=== PATIENT | male | born 1970 ===

== ENCOUNTER 2018-05-15 07:57 | Inpatient (IN) | payer BC, MEDICAID ==
[2018-05-15 08:03] VITALS: BMI 33.2
--- NOTE | 2018-05-15 08:26 | ED PDOC ---
Arrival/HPI - General Historian: Patient - History of Present Illness Time/Duration: < week Symptom Onset: Gradual Symptom Course: Unchanged <Rafi Uribe - Last Filed: 05/15/18 15:19> <LeeannaPanchito L - Last Filed: 05/15/18 16:07> - General Chief Complaint: Alcohol Ingestion Time Seen by Provider: 05/15/18 08:01 - History of Present Illness Narrative History of Present Illness (Text): 05/15/18 08:22 Patient is a 47 year old male with no PMH who presents to ED for feeling shaky and feeling unsteady on his feet for the past four hours. He states that he has never felt this way before. He denies LOC or seizing and is A/o x 3 currently. He states that his last drink was at 1800 Sunday night (three days ago). He admits to drinking 3-4 large beers on Sunday and Sunday nights regularly. He denies drinking regularly during the week. He states that he has never felt a need to cut down on his alcohol intake and has never felt that he needed a drink in the morning to wake up. He denies tobacco or other drug use. He denies any past medical, surgical, or family history. He denies any fever, chills, SOB , CP, LYON, blurry vision, peripheral numbness/tingling, weakness, or dizziness. His main complaint is feeling unsteady on his feet and a trembling feeling. He denies feeling anxious, depressed, and suicidal ideation. 05/15/18 13:10 Patient provided additional history that he fell last Sunday (five days ago). He is also complaining of L leg numbness which he says has been getting worse for the past five days. He also reports that he has pain in his left leg which he describes as a tingling type pain. His brother was present at bedside and stated that he hasn't gotten out of bed for the last two days, which is why he decided to come to the ED today. (Rafi Uribe) Past Medical History - Provider Review Nursing Documentation Reviewed: Yes - Travel History Have you recently traveled outside [place] w/in the past 3 mons?: No - Cardiac Hx Cardiac Disorders: No - Pulmonary Hx Respiratory Disorders: No - Neurological Hx Neurological Disorder: No - HEENT Hx HEENT Disorder: No - Renal Hx Renal Disorder: No - Endocrine/Metabolic Hx Endocrine Disorders: No - Hematological/Oncological Hx Blood Disorders: No - Integumentary Hx Dermatological Disorder: No - Musculoskeletal/Rheumatological Hx Musculoskeletal Disorders: No - Gastrointestinal Hx Gastrointestinal Disorders: No - Genitourinary/Gynecological Hx Genitourinary Disorders: No - Psychiatric Hx Psychophysiologic Disorder: No Hx Substance Use: No <Rafi Uribe - Last Filed: 05/15/18 15:19> Family/Social History - Physician Review Nursing Documentation Reviewed: Yes Family/Social History: No Known Family HX Smoking Status: Never Smoked Hx Alcohol Use: No Hx Substance Use: No <Rafi Uribe - Last Filed: 05/15/18 15:19> Allergies/Home Meds <Rafi Uribe - Last Filed: 05/15/18 15:19> <Panchito Durán - Last Filed: 05/15/18 16:07> Allergies/Adverse Reactions: Allergies No Known Allergies Allergy (Verified 05/15/18 08:03) Home Medications: Home Meds Medication Instructions Recorded Confirmed No Known Home Med 05/15/18 05/15/18 Review of Systems - Review of Systems Constitutional: absent: Fatigue, Fevers Eyes: absent: Vision Changes, Photophobia ENT: absent: Sore Throat, Rhinorrhea Respiratory: absent: SOB, Cough Cardiovascular: absent: Chest Pain, MILLER Gastrointestinal: absent: Abdominal Pain, Nausea (admits to feeling nauseous previously but denies current nausea), Vomiting Genitourinary Male: absent: Dysuria, Frequency Musculoskeletal: absent: Arthralgias Skin: absent: Rash, Pruritis Neurological: Gait Changes. absent: Headache, Dizziness, Focal Weakness, Seizure Endocrine: absent: Diaphoresis Hemo/Lymphatic: absent: Adenopathy Psychiatric: absent: Anxiety, Depression, Suicidal Ideation, Other (no auditory or visual hallucinations) <Rafi Uribe - Last Filed: 05/15/18 15:19> Physical Exam Vital Signs Reviewed: Yes Temperature: Afebrile Blood Pressure: Hypertensive Pulse: Regular Respiratory Rate: Normal Appearance: Positive for: Unkept, Uncomfortable Pain Distress: None Mental Status: Positive for: Alert and Oriented X 3 - Systems Exam Head: Present: Atraumatic, Normocephalic Pupils: Present: PERRL Extroacular Muscles: Present: EOMI Conjunctiva: Present: Icteric Ears: Present: Normal Mouth: Present: Dry Pharnyx: Present: Normal. No: ERYTHEMA, EXUDATE Nose (External): Present: Atraumatic Neck: Present: Normal Range of Motion. No: JVD Respiratory/Chest: Present: Clear to Auscultation. No: Wheezes, Rales, Rhonchi Cardiovascular: Present: Regular Rate and Rhythm, Normal S1, S2. No: Murmurs, Rub, Gallop Abdomen: No: Tenderness, Rebound, Guarding Back: Present: Other (hematoma on right lower back) Upper Extremity: Present: Normal Inspection, Other (hematoma on left olecranon) . No: Cyanosis, Edema Lower Extremity: Present: Normal Inspection. No: Edema Neurological: Present: CN II-XII Intact, Speech Normal, Motor Func Grossly Intact, Normal Sensory Function Skin: Present: Warm, Dry Psychiatric: Present: Alert, Oriented x 3. No: Anxious, Agitated, Depressed Mood, Suicidal Ideation, Hallucinations <Rafi Uribe - Last Filed: 05/15/18 15:19> Vital Signs Temp Pulse Resp BP Pulse Ox 05/15/18 15:50 98.6 F 91 H 18 136/73 95 05/15/18 13:10 98.0 F 94 H 20 131/78 98 05/15/18 08:13 98.9 F 81 19 165/91 H 98 Medical Decision Making - Lab Interpretations I have reviewed the lab results: Yes Interpretation: Abnormal lab values (Elevated LFTs, hypomagnesemic, hypokalemic) - RAD Interpretation Manufacturing Cost Estimator: ED Physician, Radiologist <Rafi Uribe - Last Filed: 05/15/18 15:19> <Panchito Durán - Last Filed: 05/15/18 16:07> ED Course and Treatment: 05/15/18 08:29 -Patient admits to shaking/tremors but otherwise denies LYON, auditory/visual hallucinations, or any other CIWA symptoms -Will get CBC, CMP, Mg, alcohol level, urine drug screen -Will give ativan PO 2 mg to see if this improves his symptoms 05/15/18 10:27 -Convinced patient to take ativan as this will help with his shaking/tremor symptoms 05/15/18 10:46 -Patient noted to be hypomagnesemic and hypokalemic, repleted in ED -LFTs are also elevated, AST > ALT 05/15/18 12:00 -Patient is still unsteady when trying to ambulate -Will continue to monitor s/p ativan 05/15/18 13:12 -Patient was re-evaluated and gave additional history as stated in HPI -Continues to have unsteady gait -No tremors or tongue fasciculations observed -Motor strength 5/5 bilaterally 05/15/18 14:21 -Patient reassessed, motor strength still 5/5 bilaterally with unsteady gait -Discussed plan for admission with patient and his brother who agree they would rather stay for additional evaluation -Patient is icteric with elevated LFTs, will add on ammonia level 05/15/18 14:42 -Spoke with Dr. Hahn who agrees to admission (Rafi Uribe) Patient Seen With Resident: In agreement with resident note which contains more details about the patient. Patient was seen and evaluated with resident. Came up with plan and treatment together.. 47 year old male presents complaining feeling shaky and feeling unsteady on his feet. Last drink was 3 days ago. Patient reports he fell 5 days ago and is also complaining of left leg numbness which he reports is worsening. Plan: -- CT Head w/o contrast -- CT Lumbar spine w/o contrast -- Labs -- Ativan, Potassium Chloride, Mag-Ox -- Hip min 2V w/ Pelvis X-ray -- Urinalysis -- Reassess and disposition 13:12 - Patient walking status was reevaluated. He was having difficulty with gait. His left leg was more unsteady then his left leg. He did not have tremors or tongue fasciculations. He was AAOx3. His brother was now at bedside who stated that he has not been well for 2 days and also fell. Patient has right lower back ecchymosis. CT Lumbar negative for fracture. UA negative for blood. CT head negative with no evidence of stroke. Since patient has this left lower leg numbness a low dose aspirin was given for possible CVA. Platelets low but risk for CVA tx outweighted benefits. No history of gi bleed at this time. He does have elevated LFTs and is icteric. Ammonia level added. I discussed the case with Dr. Selma Avilez who agrees to aspirin and plan for admission. ( LeeannaPanchito L) - Lab Interpretations Lab Results: 05/15/18 08:50 05/15/18 08:50 Lab Results 05/15/18 12:13: Urine Opiates Screen Negative, Urine Methadone Screen Negative, Ur Barbiturates Screen Negative, Ur Phencyclidine Scrn Negative, Ur Amphetamines Screen Negative, U Benzodiazepines Scrn Negative, U Oth Cocaine Metabols Negative, U Cannabinoids Screen Negative 05/15/18 11:20: Urine Color Yellow, Urine Appearance Clear, Urine pH 7.0, Ur Specific [place] <= 1.005, Urine Protein Negative, Urine Glucose (UA) 100 H, Urine Ketones Negative, Urine Blood Negative, Urine Nitrate Negative, Urine Bilirubin Small H, Urine Urobilinogen >=8.0, Ur Leukocyte Esterase Negative 05/15/18 08:50: Alcohol, Quantitative 14 H 05/15/18 08:50: Sodium 137, Potassium 3.5 L, Chloride 100, Carbon Dioxide 26, Anion Gap 14, BUN 12, Creatinine 0.7 L, Est GFR ( Amer) > 60, Est GFR ( Non-Af Amer) > 60, Random Glucose 121 H, Calcium 8.1 L, Magnesium 1.5 L, Total Bilirubin 3.4 H, AST 650 H, ALT 128 H, Alkaline Phosphatase 99, Total Protein 7.7, Albumin 3.5, Globulin 4.2, Albumin/Globulin Ratio 0.8 L 05/15/18 08:50: WBC 5.7, RBC 3.50, Hgb 12.5 L, Hct 33.9 L, MCV 96.9, MCH 35.7 H , MCHC 36.9, RDW 15.0 H, Plt Count 50 L, MPV 11.3 H, Gran % 65.9, Lymph % (Auto ) 23.1, [place] % (Auto) 10.2 H, Eos % (Auto) 0.4 L, Baso % (Auto) 0.4, Gran # 3.75 , Lymph # (Auto) 1.3, [place] # (Auto) 0.6, Eos # (Auto) 0.0, Baso # (Auto) 0.02 - RAD Interpretation Narrative RAD Interpretations (Text): 05/15/18 14:43 Hip/pelvis xray, CT head and lumbar spine are negative for acute fracture ( Rafi Uribe) Radiology Orders: 05/15/18 13:08 HEAD W/O CONTRAST [CT] Stat HIP MIN 2V W/ PELVIS LT [RAD] Stat 05/15/18 13:09 LUMBAR SPINE W/O CONTRAST [CT] Stat - Medication Orders Current Medication Orders: Discontinued Medications Aspirin (Ecotrin) 81 mg PO STAT STA Stop: 05/15/18 14:46 Last Admin: 05/15/18 15:55 Dose: 81 mg Lorazepam (Ativan) 2 mg PO ONCE ONE PRN Reason: Protocol Stop: 05/15/18 08:35 Last Admin: 05/15/18 10:39 Dose: 2 mg Magnesium Oxide (Mag-Ox) 400 mg PO STAT STA Stop: 05/15/18 10:04 Last Admin: 05/15/18 10:39 Dose: 400 mg Potassium Chloride (K-Dur 20 Meq Er Tab) 40 meq PO STAT STA Stop: 05/15/18 10:04 Last Admin: 05/15/18 10:39 Dose: 40 meq NIHSS Scale ([place]) Time Performed: 08:01 - How Severe is the Stoke Baseline Level of Consciousness: 0=Alert LOC to Questions: 0=Both comments correct LOC to commands: 0=Obeys both correctly Best Gaze: 0=Normal Visual: 0=No visual loss Facial: 0=Normal Motor Arm - Left: 0=No drift Motor Arm - Right: 0=No drift Motor Leg - Left: 0=No drift Motor Leg - Right: 0=No drift Limb Ataxia: 0=Absent Sensory: 0=Normal Best Language: 0=No aphasia Dysarthia: 0=Normal articulation Extinction & Inattention (Neglect): 0=Normal, no object Score: 0 Risk Level: No Stroke Risk <Panchito Durán - Last Filed: 05/15/18 16:07> <Rafi Uribe - Last Filed: 05/15/18 15:19> - PA / JUNIOR STAFF ACCOUNTANT / Resident Statement PARTH has reviewed & agrees with the documentation as recorded. / has examined the patient and agrees with the treatment plan. - Scribe Statement The provider has reviewed the documentation as recorded by the Scribe <Panchito Durán - Last Filed: 05/15/18 16:07> - Scribe Statement Alaa Emily Provider Scribe Attestation: All medical record entries made by the Scribe were at my direction and personally dictated by me. I have reviewed the chart and agree that the record accurately reflects my personal performance of the history, physical exam, medical decision making, and the department course for this patient. I have also personally directed, reviewed, and agree with the discharge instructions and disposition. (Panchito Durán) Disposition/Present on Arrival - Present on Arrival Any Indicators Present on Arrival: No History of DVT/PE: No History of Uncontrolled Diabetes: No Urinary Catheter: No History of Decub. Ulcer: No History Surgical Site Infection Following: None - Disposition Have Diagnosis and Disposition been Completed?: No Disposition Time: 14:46 Patient Plan: Admission <Rafi Uribe - Last Filed: 05/15/18 15:19> - Disposition Have Diagnosis and Disposition been Completed?: Yes <Panchito Durán - Last Filed: 05/15/18 16:07> - Disposition Diagnosis: Weakness, Left leg weakness, Elevated transaminase level, Thrombocytopenia Disposition: HOSPITALIZED Patient Problems: Current Active Problems Problem Status Onset Elevated transaminase level Acute Left leg weakness Acute Thrombocytopenia Acute Weakness Acute Condition: FAIR
[2018-05-15 09:24] LABS: BASO # 0.02 K/mm3 (0.0-2.0); BASO % 0.4 % (0.0-3.0); EOS % 0.4 % (1.5-5.0); GRAN # 3.75 (1.4-6.5); GRAN % 65.9 % (50.0-68.0); HEMOGLOBIN 12.5 g/dL (14.0-18.0); LYMPH # 1.3 (1.2-3.4); LYMPH % 23.1 % (22.0-35.0); MEAN CELL VOLUME 96.9 fl (80.0-105.0); MEAN CORPUSCULAR HEMOGLOBIN 35.7 pg (25.0-35.0); MEAN CORPUSCULAR HGB CONC 36.9 g/dl (31.0-37.0); MEAN PLATELET VOLUME 11.3 fl (7.0-11.0); MONO # 0.6 (0.1-0.6); MONO % 10.2 % (1.0-6.0); RBC 3.5 10^6/uL (3.5-6.1); WHITE BLOOD COUNT 5.7 10^3/ul (4.5-11.0)
[2018-05-15 09:27] LABS: ALB/GLOB RATIO 0.8 (1.1-1.8); ALBUMIN 3.5 g/dL (3.0-4.8); ALT/SGPT 128 U/L (7-56); AST/SGOT 650 U/L (17-59); BLOOD UREA NITROGEN 12 mg/dL (7-21); CALCIUM 8.1 mg/dL (8.4-10.5); GFR NON-AFRICAN AMERICAN > 60
[2018-05-15] MEDS ORDERED: Magnesium Oxide 400 mg Tab UD PO STA (10:03)
[2018-05-15] MEDS ORDERED: Potassium Chloride 20 mEq ER Tab PO STA (10:03)
[2018-05-15 12:40] LABS: BARBITURATES, UR NEGATIVE (NEGATIVE); BENZODIAZEPINES, UR NEGATIVE (NEGATIVE); OPIATES, UR NEGATIVE (NEGATIVE); PHENCYCLIDINE, UR NEGATIVE (NEGATIVE)
--- NOTE | 2018-05-15 14:00 | CT ---
Date of service: 05/15/2018 PROCEDURE: CT HEAD WITHOUT CONTRAST. HISTORY: s/p fall COMPARISON: None available. TECHNIQUE: Axial computed tomography images were obtained through the head/brain without intravenous contrast. Radiation dose: Total exam DLP = 994 mGy-cm. This CT exam was performed using one or more of the following dose reduction techniques: Automated exposure control, adjustment of the mA and/or kV according to patient size, and/or use of iterative reconstruction technique. FINDINGS: HEMORRHAGE: No intracranial hemorrhage. BRAIN: No mass effect or edema. No atrophy or chronic microvascular ischemic changes. VENTRICLES: Unremarkable. No hydrocephalus. CALVARIUM: Unremarkable. PARANASAL SINUSES: Unremarkable as visualized. No significant inflammatory changes. MASTOID AIR CELLS: Unremarkable as visualized. No inflammatory changes. OTHER FINDINGS: None. IMPRESSION: No acute intracranial finding
--- NOTE | 2018-05-15 14:04 | CT ---
Date of service: 05/15/2018 PROCEDURE: CT Lumbar Spine without contrast HISTORY: mechanical fall r/o fx COMPARISON: None available. TECHNIQUE: Axial computed tomography images were obtained of the lumbar spine without the use of intravenous contrast. Coronal and sagittal reformatted images were created and reviewed. Radiation dose: Total exam DLP = 1338 mGy-cm. This CT exam was performed using one or more of the following dose reduction techniques: Automated exposure control, adjustment of the mA and/or kV according to patient size, and/or use of iterative reconstruction technique. FINDINGS: VERTEBRAE: Unremarkable. No fracture. Normal alignment. DISCS/SPINAL CANAL/NEURAL FORAMINA: L1-2: Unremarkable. L2-3: Unremarkable. L3-4: Mild disc bulge L4-5: Mild disc bulge L5-S1: Moderate disc bulge PARASPINAL SOFT TISSUES: Unremarkable. OTHER FINDINGS: None. IMPRESSION: No acute vertebral compression fracture
[2018-05-15 14:16] LABS: URINE BILIRUBIN SMALL (NEGATIVE); URINE BLOOD NEGATIVE (NEGATIVE); URINE GLUCOSE (UA) 100 mg/dL (NEGATIVE); URINE LEUKOCYTE ESTERASE NEGATIVE Leu/uL (NEGATIVE); URINE PROTEIN NEGATIVE mg/dL (<30 mg/dL); URINE UROBILINOGEN >=8.0 E.U./dL (<1 E.U./dL)
[2018-05-15 14:17] LABS: URINE APPEARANCE CLEAR (CLEAR); URINE COLOR YELLOW (YELLOW)
--- NOTE | 2018-05-15 14:23 | RAD ---
PROCEDURE: Left Hip and pelvis X-ray Radiographs. HISTORY: s/p fall COMPARISON: None. FINDINGS: BONES: Normal. No fracture. JOINTS: Normal. SOFT TISSUES: Normal. OTHER FINDINGS: None. IMPRESSION: No evidence of fracture
--- NOTE | 2018-05-15 15:53 | CP.PCM.HP ---
<Alexandru Avilez - Last Filed: 05/15/18 17:42> History of Present Illness - History of Present Illness History of Present Illness: Alexandru Avilez DO PGY1 - Internal medicine Biological Photographer - Hospital Progress Note 47M w/ no significant PMH brought in by EMS for 5 days of drinking and N/V. He was vomiting 4-5 times a day for the past 2 days. The vomit was light brown in color and denies any coffee ground emesis. On exam patient is complaining of some left lower extremity sided numbness/tinging and gait unsteadiness that also started 2 days ago. Pt states that he needs to grab hold of something when he walks or else he feels that he is going to fall. He states that leaning forward does not make his numbness/tinging better. He reports fevers, chills, headaches, and constipation. He denies chest pain, SOB, abdominal pain, diarrhea and dysuria. 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 In ED: BP elevated - 165/90 Thrombocytopenic Hypokalemic, Hypomag LFTs elevated AST>ALT Glucosuria Urine EtOH [address] Head negative Hip/Pelvis XR negative Lumbar Spine CT: Mild Disc Bulge L3-4 ;L4-5; Moderate disc bulge L5 - S1 Present on Admission - Present on Admission Any Indicators Present on Admission: No Review of Systems - Review of Systems Review of Systems: As per HPI Past Patient History - Past Social History Smoking Status: Never Smoked - CARDIAC Hx Cardiac Disorders: No - PULMONARY Hx Respiratory Disorders: No - NEUROLOGICAL Hx Neurological Disorder: No - HEENT Hx HEENT Problems: No - RENAL Hx Chronic Kidney Disease: No - ENDOCRINE/METABOLIC Hx Endocrine Disorders: No - HEMATOLOGICAL/ONCOLOGICAL Hx Blood Disorders: No - INTEGUMENTARY Hx Dermatological Problems: No - MUSCULOSKELETAL/RHEUMATOLOGICAL Hx Musculoskeletal Disorders: No - GASTROINTESTINAL Hx Gastrointestinal Disorders: No - GENITOURINARY/GYNECOLOGICAL Hx Genitourinary Disorders: No - PSYCHIATRIC Hx Psychophysiologic Disorder: No Hx Substance Use: No - SURGICAL HISTORY Hx Surgeries: No Meds Allergies/Adverse Reactions: Allergies Allergy/AdvReac Type Severity Reaction Status Date / Time No Known Allergies Allergy Verified 05/15/18 17:14 Physical Exam - Constitutional Appears: Well, Non-toxic, No Acute Distress - Head Exam Head Exam: ATRAUMATIC, NORMOCEPHALIC - Eye Exam Eye Exam: EOMI, PERRL, Scleral icterus - ENT Exam ENT Exam: Mucous Membranes Moist - Respiratory Exam Respiratory Exam: Clear to Auscultation Bilateral, NORMAL BREATHING PATTERN. absent: Rales, Rhonchi, Wheezes - Cardiovascular Exam Cardiovascular Exam: RRR, +S1, +S2. absent: Systolic Murmur - Extremities Exam Extremities exam: Positive for: pedal edema, pedal pulses present Additional comments: Scab L 1st toe Minimal LE Edema appreciated - Back Exam Back exam: absent: CVA tenderness (L), CVA tenderness (R) Additional comments: 8cm hematoma on R lower back - Neurological Exam Neurological exam: Alert, CN II-XII Intact Additional comments: Gross Strength 5/5 UE/LE BL - Psychiatric Exam Psychiatric exam: Normal Affect, Normal Mood - Skin Skin Exam: Dry, Intact, Normal Color, Warm Results - Vital Signs Recent Vital Signs: Last Vital Signs Temp 98.9 F 05/15/18 08:13 Pulse 81 05/15/18 08:13 Resp 19 05/15/18 08:13 BP 165/91 H 05/15/18 08:13 Pulse Ox 98 05/15/18 08:13 - Labs Result Diagrams: 05/15/18 08:50 05/15/18 08:50 Assessment & Plan - Assessment and Plan (Free Text) Assessment: 47M w/ no significant PMH, brought in by EMS w/ CC EtOH intoxication, and LLE numbness; found to have thrombocytopenia and transaminitis on ED Work up. Plan EtOh Intoxication / withdrawal -CLD -ativan 2mg q6h rubina/ 1mg q4h prn -zofran 4 mg q4h prn -Banana Bag 100/hr -Ciwa Thrombocytopenia -peripheral smear ordered -likely 2/2 EtOH abuse -monitor s/s bleeding -Hold heparin/lovenox -H/H stable Hematoma on Flank -Due to recent fall; rule out retroperitoneal hematoma -CTAP w/ IV Contrast Transaminitis -AST and ALT elevated likely 2/2 alcohol -Avoid hepatotoxic medications -Monitor LFT's in AM -Hepatitis Panel -Abdominal U/S Glucosuria -A1C pending LLE numbness Most likely sciatica vs radiculopathy 2/2 discbulge -Hip/Pelvix Xray Negative -Lumbar Spine CT - L3/4 L4/5 L5/S1 disc bulge -RPR, Folate, B12 pending Hypokalemia/ Hypomagnesmia -Repleted in ED; Reassess in AM DISPO: Inpatient obs for EtOH withdrawal/ intoxication; Will work up Thrombocytopenia, Transaminitis, and Lower Extremity Numbness Patient was seen, examined, and discussed w/ attending physician Dr. Selma Avilez DO PGY1 Internal Medicine Biological Photographer -Pager [phone] - Date & Time Date: 05/15/18 Time: 15:54 <Selma Avilez R - Last Filed: 05/17/18 14:28> Results - Vital Signs Recent Vital Signs: Last Vital Signs Temp 98.6 F 05/17/18 12:00 Pulse 117 H 05/17/18 12:14 Resp 18 05/17/18 12:00 BP 150/83 05/17/18 12:00 Pulse Ox 96 05/17/18 06:00 - Labs Result Diagrams: 05/17/18 09:50 05/17/18 05:30 Labs: Laboratory Results - last 24 hr 05/16/18 05/17/18 05/17/18 05:40 05:30 05:30 WBC 2.9 L* D RBC 2.91 L Hgb 10.5 L Hct 28.6 L MCV 98.3 MCH 36.1 H MCHC 36.7 RDW 15.6 H Plt Count 39 L* MPV 10.6 Gran % 59.8 Lymph % (Auto) 23.3 [place] % (Auto) 14.2 H Eos % (Auto) 2.4 Baso % (Auto) 0.3 Gran # 1.72 Lymph # (Auto) 0.7 L [place] # (Auto) 0.4 Eos # (Auto) 0.1 Baso # (Auto) 0.01 Sodium 138 Potassium 3.6 Chloride 103 Carbon Dioxide 28 Anion Gap 11 BUN 7 Creatinine 0.6 L Est GFR ( Amer) > 60 Est GFR (Non-Af Amer) > 60 Random Glucose 114 H Calcium 8.0 L Phosphorus 3.0 Magnesium 1.5 L Total Bilirubin 3.0 H AST 350 H D ALT 100 H Alkaline Phosphatase 88 Total Protein 6.5 Albumin 2.9 L Globulin 3.6 Albumin/Globulin Ratio 0.8 L RPR Nonreactive 05/17/18 09:50 WBC 3.9 L D RBC 2.90 L Hgb 10.5 L Hct 28.4 L MCV 97.9 MCH 36.2 H MCHC 37.0 RDW 15.7 H Plt Count 41 L* MPV 10.2 Gran % 69.1 H Lymph % (Auto) 18.5 L [place] % (Auto) 10.8 H Eos % (Auto) 1.3 L Baso % (Auto) 0.3 Gran # 2.69 Lymph # (Auto) 0.7 L [place] # (Auto) 0.4 Eos # (Auto) 0.1 Baso # (Auto) 0.01 Sodium Potassium Chloride Carbon Dioxide Anion Gap BUN Creatinine Est GFR ( Amer) Est GFR (Non-Af Amer) Random Glucose Calcium Phosphorus Magnesium Total Bilirubin AST ALT Alkaline Phosphatase Total Protein Albumin Globulin Albumin/Globulin Ratio RPR Attending/Attestation - Attestation I have personally seen and examined this patient.: Yes I have fully participated in the care of the patient.: Yes I have reviewed all pertinent clinical information: Yes Notes (Text): Patient seen and examined by me at 5:00PM with resident 05/15/18. Case including HPI, physical exam, and assessment and plan discussed with resident. Agree with above with following additions/corrections. Patient is a 47 year old male with past medical history significant for alcohol abuse that presents to the Emergency room with nausea, vomiting, and left leg numbness. Patient states that he has been having these symptoms since Sunday, . He states that he had food poisoning. he states he "i only drink 2-3 large cans of beers on weekends." He states last drink was 05/12/18. He states that left leg numbness started at same time. States the numbness is from his buttock down to his foot. He states that he has had difficulty ambulating secondary to this. He is unsure if he feel. He denies any current nausea or vomiting. No abdominal pain. No headaches or dizziness. No fevers or chills. No chest pain or shortness of breath. No dysuria. 12 point review of systems reviewed by me. Please see HPI. All other systems are negative. Physical exam: General: Awake and alert sitting up in bed in no acute distress HEENT: Normocephalic atraumatic. Pupils equal reactive. Extraocular muscles intact. Positive scleral icterus. Oropharynx is pink and moist. No pharyngeal erythema or exudate appreciated. Neck is supple. Hearing grossly intact. Ears and nose externally unremarkable Cardiovascular: Normal rhythm. Normal S1, S2. No murmurs, rubs, or gallops appreciated Pulmonary: Normal respiratory effort. No rhonchi, rales or wheezing appreciated. Gastrointestinal: Soft, nondistended. Nontender. Positive bowel sounds all 4 quadrants, no guarding. Musculoskeletal: Decreased range of motion left lower extremity, no calf tenderness, no edema appreciated. Central nervous system: AAOx3. CN2-12 grossly intact. 5/5 muscle strength all extremities. Dermatologic: Skin warm and dry, positive hematoma noted at right flank area Assessment and plan: Patient is a 47 year old male with past medical history significant for alochol abuse that presents to the Emergency room with nausea, vomiting, and left leg numbness. 1. ETOH abuse/intoxication/withdrawal. Placed on CIWA protocol. Placed on Ativan. Placed on thiamine, folic acid, and multivitamin. Patient counseled at length on cessation. Seizure precautions. Fall precautions. 2. Left leg numbness. Symptoms likely related to sciatica. Head CT per radiologist shows no acute intracranial finding. Left hip/pelvic xray per radiologist showed no fracture. Lumbar spine CT per radiologist shows no acute vertebral compression fracture. Ordered left lower extremity venous doppler. PT eval and treat. 3. Thrombocytopenia. Likely secondary to ETOh abuse. Pending peripheral smear. No current signs of acute bleeding. Continue to monitor 4. Elevated LFTS. Likely secondary to ETOH abuse. Follow up RUQ ultrasound and CT abd/pelvis. Follow up hepatitis panel. Continue to monitor 5. Right flank hematoma. Follow up CT abd/pelvis. 6. Hypokalemia/hypomagnesemia. Repleted in ED. Follow up repeat labs in AM. Case was discussed in detail with the patient regarding current diagnosis and treatment plan.
[2018-05-15] MEDS: Folic Acid 1 MG, Thiamine 100 MG, Multivitamin (MVI) 10 ML in Dextrose 5% In Water 1,00... IV SCH (18:54)
[2018-05-15] MEDS ORDERED: Pneumococcal 23-Valent Vaccine IM ONE (21:44)
--- NOTE | 2018-05-15 23:18 | CARD ---
APPROVED REPORT Date of service: 05/15/2018 EKG Measurement Heart [id number] [id number] <Conclusion> Sinus rhythm with short MA Prolonged QT Abnormal ECG
[2018-05-16] MEDS: Folic Acid 1 MG, Thiamine 100 MG, Multivitamin (MVI) 10 ML in Dextrose 5% In Water 1,00... IV SCH ×3 (04:08→22:31)
[2018-05-16 06:32] LABS: BASO # 0.01 K/mm3 (0.0-2.0); BASO % 0.2 % (0.0-3.0); EOS # 0.1 (0.0-0.7); EOS % 1.3 % (1.5-5.0); GRAN # 2.63 (1.4-6.5); GRAN % 57.7 % (50.0-68.0); HEMOGLOBIN 10.6 g/dL (14.0-18.0); LYMPH # 1.3 (1.2-3.4); LYMPH % 27.9 % (22.0-35.0); MEAN CORPUSCULAR HEMOGLOBIN 35.3 pg (25.0-35.0); MEAN CORPUSCULAR HGB CONC 36.1 g/dl (31.0-37.0); MEAN PLATELET VOLUME 11.1 fl (7.0-11.0); MONO # 0.6 (0.1-0.6); MONO % 12.9 % (1.0-6.0); RED CELL DISTRIBUTION WIDTH 15.3 % (11.5-14.5); WHITE BLOOD COUNT 4.6 10^3/ul (4.5-11.0)
[2018-05-16 06:43] LABS: PLATELET COUNT 42 10^3/uL (120.0-450.0)
[2018-05-16 06:56] LABS: LDL CHOLESTEROL 79 mg/dL (0-129)
[2018-05-16 07:03] LABS: ALB/GLOB RATIO 0.8 (1.1-1.8); ALBUMIN 2.9 g/dL (3.0-4.8); ALT/SGPT 106 U/L (7-56); AST/SGOT 481 U/L (17-59); BLOOD UREA NITROGEN 8 mg/dL (7-21); CALCIUM 7.6 mg/dL (8.4-10.5); GFR NON-AFRICAN AMERICAN > 60; HDL CHOLESTEROL 26 mg/dL (29-60)
[2018-05-16] MEDS ORDERED: Potassium Chloride 20 mEq ER Tab PO STA (07:49)
[2018-05-16] MEDS ORDERED: Magnesium Sulfate 2 GM in Sodium Chloride 0.9% 100 ML IVPB ONE (07:51)
--- NOTE | 2018-05-16 08:13 | US ---
HISTORY: Leg pain and swelling. Evaluate for DVT PHYSICIAN(S): Kg Light MD. TECHNIQUE: Duplex sonography and color-flow Doppler with graded compression were used to evaluate the deep venous systems of both lower extremities. FINDINGS: The visualized deep venous systems of both lower extremities are sonographically normal and compressible. Normal wave forms and augmentation are seen. There is no sonographic evidence for deep venous thrombosis in the visualized segments of both lower extremities. IMPRESSION: No sonographic evidence for deep venous thrombosis in the visualized segments of both lower extremities.
[2018-05-16] MEDS ORDERED: Magnesium 2 gm/50 ml NS 2 GM/50 ML BAG IVPB ONE (08:15)
--- NOTE | 2018-05-16 09:10 | CT ---
Date of service: 05/15/2018 PROCEDURE: CT Abdomen and Pelvis with contrast HISTORY: R/o retroperitoneal hematoma COMPARISON: None. TECHNIQUE: Following intravenous contrast administration, a CT examination of the abdomen and pelvis performed from the domes of the diaphragms to the symphysis pubis with reformatted datasets provided not only axial but also sagittal and coronal series. Contrast dose: Omnipaque 350, 146 cc. Radiation dose: Total exam DLP = 1234.95 mGy-cm. This CT exam was performed using one or more of the following dose reduction techniques: Automated exposure control, adjustment of the mA and/or kV according to patient size, and/or use of iterative reconstruction technique. FINDINGS: LOWER THORAX: Unremarkable. LIVER: A low-attenuation liver with a nodular surface is appreciated with hepatic cirrhosis and diffuse fatty infiltration as well. No focal mass is identified. Hepatofugal blood flows apparent given multifocal varices identified most prominently at the right lower quadrant extending to the superior mesenteric vein with lesser varices identified at the distal esophagus, gastrohepatic ligament and also at the splenorenal distribution. GALLBLADDER AND BILE DUCTS: No biliary tree dilatation is appreciated however the gallbladder is distended with a thin smooth wall to the 13.4 x 4.5 cm. No radiodense cholelithiasis identified or pericholecystic fluid collection. Clinically correlate nevertheless. PANCREAS: Unremarkable. No gross lesion or ductal dilatation. SPLEEN: Unremarkable. ADRENALS: Unremarkable. No mass. KIDNEYS AND URETERS: Unremarkable. No hydronephrosis. No solid mass. No retroperitoneal fluid collection identified. VASCULATURE: Unremarkable. No aortic aneurysm. BOWEL: Unremarkable. No obstruction. No gross mural thickening. APPENDIX: Normal appendix. PERITONEUM: Unremarkable. No free fluid. No free air. LYMPH NODES: Unremarkable. No enlarged lymph nodes. BLADDER: Unremarkable. REPRODUCTIVE: Unremarkable. BONES: No acute fracture. Questionable small infarct right femoral head. OTHER FINDINGS: Moderate reactive changes are identified in the left thigh/ hip subcutaneous fat suggests of cellulitis including dermal thickening. Clear posttraumatic or infectious/ inflammatory process. No emphysematous soft tissue change are identified or retained radiodense foreign body. Minimal similar changes in the left flank will abdominal wall extending posteriorly, also without fluid collection. IMPRESSION: 1. No retroperitoneal fluid collection identified. 2. Instead, moderate reactive changes are identified in the left thigh access hip subcutaneous soft tissues greater than left flank abdominal wall subcutaneous fat and dermis suggestive of posttraumatic changes no infectious or inflammatory causes are not excluded. No emphysema soft tissue change or retained radiodense foreign body identified. Clinically correlate further. No acute fracture. 3. Fatty cirrhotic liver with hepatofugal blood flow. Multifocal varices are identified in the abdomen as discussed above. 4. Marked gallbladder distention without radiodense cholelithiasis, mural thickening or pericholecystic fluid collection evident. Clinically correlate nevertheless.
--- NOTE | 2018-05-16 10:08 | US ---
Date of service: 05/15/2018 HISTORY: Liver Enzymes COMPARISON: None. TECHNIQUE: Sonographic evaluation of the right upper quadrant of the abdomen. FINDINGS: LIVER: Measures 16.1 cm in length. Borderline hepatomegaly. Increased echogenicity of the liver parenchyma suggest mild hepatic steatosis. No mass. No intrahepatic bile duct dilatation. GALLBLADDER: Gallbladder is distended with mild mural thickening questioned. Trace pericholecystic fluid is seen. Clinically correlate for possible cholecystitis though this is a nonspecific finding. COMMON BILE DUCT: Measures 4.6 mm. No stones. No dilatation. PANCREAS: Secured by overlying bowel gas RIGHT KIDNEY: Measures 12.8 cm in length. Normal echogenicity. No calculus, mass, or hydronephrosis. AORTA: No aneurysmal dilatation. IVC: Unremarkable. OTHER FINDINGS: None . IMPRESSION: 1. Questionable mural thickening of the gallbladder, distention and pericholecystic fluid are identified which may indicate cholecystitis though ultimately this is a nonspecific pattern. Clinically correlate further. No biliary tree dilatation or cholelithiasis identified. 2. Pancreas poorly evaluated due to overlying bowel gas. Concordant preliminary report from [facility], 05/15/2018.
[2018-05-16 11:58] LABS: HEPATITIS B SURFACE AG Negative (NEGATIVE)
[2018-05-16 12:03] LABS: HEPATITIS A IGM NEGATIVE (NEGATIVE); HEPATITIS B CORE AB NEGATIVE (NEGATIVE)
[2018-05-16 12:15] LABS: HEPATITIS C ANTIBODY NEGATIVE (NEGATIVE)
[2018-05-16 12:35] LABS: FOLATE > 20.0 ng/mL
--- NOTE | 2018-05-16 14:06 | CP.PCM.PN ---
<Alexandru Avilez - Last Filed: 05/16/18 14:00> Subjective - Date & Time of Evaluation Date of Evaluation: 05/16/18 Time of Evaluation: 14:00 - Subjective Subjective: Alexandru Avilez DO PGY1 - Internal Medicine Bulk Sugar Handler - Hospital Progress Note Pt. seen and examined at bedside this AM Reporting no new complaints at evaluation. Still complains of L leg numbness/ tingling; Denies seizure like symtpoms, reports no tremors at this time. He denies fevers, chills, sob, LYON, dizziness, Abd pain, N/V/D/C Remainder of 12 system ROS is otherwise negative. Objective - Vital Signs/Intake and Output Vital Signs (last 24 hours): Temp Pulse Resp BP Pulse Ox 98.8 F 102 H 19 136/81 97 05/16/18 12:00 05/16/18 12:00 05/16/18 12:00 05/16/18 12:00 05/16/18 06:04 Intake and Output: 05/16/18 05/16/18 06:59 18:59 Intake Total 1620 Output Total 640 Balance 980 - Medications Medications: Current Medications Hydralazine HCl (Apresoline) 10 mg IVP Q6 PRN PRN Reason: Systolic Blood Pressure Folic Acid 1 mg/ Thiamine HCl 100 mg/ Multivitamins/Vitamin C 10 ml/ Dextrose 1 ,011.2 mls @ 100 mls/hr IV .Q10H7M [facility] Last Admin: 05/16/18 12:15 Dose: Not Given Lorazepam (Ativan) 2 mg IVP Q6H [facility] PRN Reason: Protocol Last Admin: 05/16/18 10:10 Dose: 2 mg Lorazepam (Ativan) 1 mg IVP Q4H PRN; Protocol PRN Reason: Symptoms of alcohol withdrawl Ondansetron HCl (Zofran Inj) 4 mg IVP Q8H PRN PRN Reason: Nausea/Vomiting - Labs Labs: 05/16/18 05:40 05/16/18 05:40 Physical Exam - Constitutional Appears: Well, Non-toxic, No Acute Distress - Head Exam Head Exam: ATRAUMATIC, NORMOCEPHALIC - Eye Exam Eye Exam: EOMI, PERRL, Scleral icterus - ENT Exam ENT Exam: Mucous Membranes Moist - Respiratory Exam Respiratory Exam: Clear to Auscultation Bilateral, NORMAL BREATHING PATTERN. absent: Rales, Rhonchi, Wheezes - Cardiovascular Exam Cardiovascular Exam: RRR, +S1, +S2. absent: Systolic Murmur - Extremities Exam Extremities exam: Positive for: pedal edema, pedal pulses present Additional comments: Scab L 1st toe Minimal LE Edema appreciated - Back Exam Back exam: absent: CVA tenderness (L), CVA tenderness (R) Additional comments: 8cm hematoma on R lower back; appears to be shrinking; borders are marked w/ marker - Neurological Exam Neurological exam: Alert, CN II-XII Intact Additional comments: Gross Strength 5/5 UE/LE BL - Psychiatric Exam Psychiatric exam: Normal Affect, Normal Mood - Skin Skin Exam: Dry, Intact, Normal Color, Warm Assessment and Plan - Assessment and Plan (Free Text) Assessment: 47M w/ no significant PMH, brought in by EMS w/ CC EtOH intoxication, and LLE numbness; found to have thrombocytopenia and transaminitis on ED Work up. Found to have Abdominal varicies on CTAP. Plan EtOh Intoxication / withdrawal -CLD -ativan 2mg q6h rubina/ 1mg q4h prn -zofran 4 mg q8h prn -Banana Bag 100/hr -Ciwa scores have been 1-2 since admission Thrombocytopenia -peripheral smear ordered -mild decrease from day prior; most likely dilutional effect -likely 2/2 EtOH abuse -monitor s/s bleeding -Hold heparin/lovenox -H/H stable Multifocal Varicies -CTAP Findings: Fatty cirrhotic liver with hepatofugal blood flow. Multifocal varices are identified in the abdomen. Marked gallbladder distention without radiodense cholelithiasis, mural thickening or pericholecystic fluid collection evident. -No hematochezia or Melena -GI Consulted, Appreciate Reccs Hematoma on Flank - Improving -Due to recent fall; rule out retroperitoneal hematoma -CTAP w/ IV Contrast - No retroperitoneal hematoma Transaminitis -Abdominal U/S - revealed questionable mural thickening of the gallbladder, distention and pericholecystic fluid are identified which may indicate cholecystitis though ultimately this is a nonspecific pattern. No biliary tree dilatation or cholelithiasis identified. Pancreas poorly evaluated due to overlying bowel gas -AST and ALT elevated likely 2/2 alcohol -Avoid hepatotoxic medications -Monitor LFT's in AM -Hepatitis Panel Glucosuria -A1C 4.5 LLE numbness Most likely sciatica vs radiculopathy 2/2 discbulge -Hip/Pelvix Xray Negative -Lumbar Spine CT - L3/4 L4/5 L5/S1 disc bulge -RPR pending -B12 normal; Folate Normal Hypokalemia/ Hypomagnesmia -Still persisting; will replete and reassess DISPO: Admitted to inpatient for EtOH withdrawal/ intoxication; Will work up Thrombocytopenia, Transaminitis, and Lower Extremity Numbness Patient was seen, examined, and discussed w/ attending physician Dr. Frandy Avilez DO PGY1 Internal Medicine Bulk Sugar Handler -Pager [phone] <Kamron Wise - Last Filed: 05/16/18 15:17> Objective - Vital Signs/Intake and Output Vital Signs (last 24 hours): Temp Pulse Resp BP Pulse Ox 98.8 F 102 H 19 136/81 97 05/16/18 12:00 05/16/18 12:00 05/16/18 12:00 05/16/18 12:00 05/16/18 06:04 Intake and Output: 05/16/18 05/16/18 06:59 18:59 Intake Total 1620 Output Total 640 Balance 980 - Medications Medications: Current Medications Hydralazine HCl (Apresoline) 10 mg IVP Q6 PRN PRN Reason: Systolic Blood Pressure Folic Acid 1 mg/ Thiamine HCl 100 mg/ Multivitamins/Vitamin C 10 ml/ Dextrose 1 ,011.2 mls @ 100 mls/hr IV .Q10H7M [facility] Last Admin: 05/16/18 12:15 Dose: Not Given Lorazepam (Ativan) 2 mg IVP Q6H RUBINA PRN Reason: Protocol Last Admin: 05/16/18 10:10 Dose: 2 mg Lorazepam (Ativan) 1 mg IVP Q4H PRN; Protocol PRN Reason: Symptoms of alcohol withdrawl Ondansetron HCl (Zofran Inj) 4 mg IVP Q8H PRN PRN Reason: Nausea/Vomiting - Labs Labs: 05/16/18 05:40 05/16/18 05:40 Attending/Attestation - Attestation I have personally seen and examined this patient.: Yes I have fully participated in the care of the patient.: Yes I have reviewed all pertinent clinical information, including history, physical exam and plan: Yes Notes (Text): 05/16/18 15:11 47 year old male with past medical history of alcohol abuse who presented with alcohol intoxication and left leg numbness. He is on ativan rubina/prn for alcohol withdrawal symptoms. He is on banana bag. He was counselled on alcohol abstinence. Thrombocytopenia and elevated LFTs likely secondary to chronic ETOH abuse. Will continue to monitor closely. CT abd/pelvis showed fatty cirrhotic liver and multifocal varices in the abdomen. GI consult is requested. He has small bruising / hematoma on his low back / flank. CT abd/pelvis was negative for retroperitoneal hematoma. CT head, CT lumbar spine and Xray of hip / pelvis reviewed as above. Will replete and repeat lytes. PT evaluation was appreciated; recommending SAR. Kamron Wise MD Hospitalist.
[2018-05-17 00:49] VITALS: RESP 18
[2018-05-17 06:43] LABS: BASO # 0.01 K/mm3 (0.0-2.0); EOS # 0.1 (0.0-0.7); MEAN CELL VOLUME 98.3 fl (80.0-105.0); MONO # 0.4 (0.1-0.6)
[2018-05-17 06:50] VITALS: O2SAT 96
[2018-05-17 07:02] LABS: BASO % 0.3 % (0.0-3.0); EOS % 2.4 % (1.5-5.0); GRAN # 1.72 (1.4-6.5); GRAN % 59.8 % (50.0-68.0); HEMOGLOBIN 10.5 g/dL (14.0-18.0); LYMPH # 0.7 (1.2-3.4); LYMPH % 23.3 % (22.0-35.0); MEAN CORPUSCULAR HEMOGLOBIN 36.1 pg (25.0-35.0); MEAN CORPUSCULAR HGB CONC 36.7 g/dl (31.0-37.0); MEAN PLATELET VOLUME 10.6 fl (7.0-11.0); MONO % 14.2 % (1.0-6.0); RBC 2.91 10^6/uL (3.5-6.1); RED CELL DISTRIBUTION WIDTH 15.6 % (11.5-14.5)
[2018-05-17 07:25] LABS: ALB/GLOB RATIO 0.8 (1.1-1.8); ALBUMIN 2.9 g/dL (3.0-4.8); ALT/SGPT 100 U/L (7-56); AST/SGOT 350 U/L (17-59); BLOOD UREA NITROGEN 7 mg/dL (7-21); GFR NON-AFRICAN AMERICAN > 60
[2018-05-17 07:26] LABS: WHITE BLOOD COUNT 2.9 10^3/ul (4.5-11.0)
[2018-05-17 07:27] LABS: PLATELET COUNT 39 10^3/uL (120.0-450.0)
[2018-05-17] MEDS ORDERED: Magnesium Sulfate 2 GM in Sodium Chloride 0.9% 100 ML IVPB ONE (08:37)
[2018-05-17] MEDS ORDERED: Magnesium 2 gm/50 ml NS 2 GM/50 ML BAG IVPB ONE (08:45)
[2018-05-17] MEDS: Folic Acid 1 MG, Thiamine 100 MG, Multivitamin (MVI) 10 ML in Dextrose 5% In Water 1,00... IV SCH (09:00)
[2018-05-17 10:08] LABS: BASO # 0.01 K/mm3 (0.0-2.0); BASO % 0.3 % (0.0-3.0); EOS # 0.1 (0.0-0.7); EOS % 1.3 % (1.5-5.0); GRAN # 2.69 (1.4-6.5); GRAN % 69.1 % (50.0-68.0); HEMOGLOBIN 10.5 g/dL (14.0-18.0); LYMPH # 0.7 (1.2-3.4); LYMPH % 18.5 % (22.0-35.0); MEAN CELL VOLUME 97.9 fl (80.0-105.0); MEAN CORPUSCULAR HEMOGLOBIN 36.2 pg (25.0-35.0); MEAN PLATELET VOLUME 10.2 fl (7.0-11.0); MONO # 0.4 (0.1-0.6); MONO % 10.8 % (1.0-6.0); RED CELL DISTRIBUTION WIDTH 15.7 % (11.5-14.5); WHITE BLOOD COUNT 3.9 10^3/ul (4.5-11.0)
[2018-05-17 10:17] LABS: PLATELET COUNT 41 10^3/uL (120.0-450.0)
--- NOTE | 2018-05-17 11:08 | CON ---
Copied To: Froylan Martínez MD Attending MD: Froylan Martínez MD DATE: 05/17/2018 CONSULTATION IN GASTROENTEROLOGY REQUESTING PHYSICIAN: Dr. Wise. REASON FOR CONSULT: I have been asked to see this 47-year-old male with a history of alcoholism, cirrhosis of the liver, who is admitted to the hospital with 3 days of nausea and vomiting. He denies any hematemesis, melena or rectal bleeding. He denies any abdominal pain. He admits to frequent falls at home. He also complains of some paresthesias and numbness in his left thigh. The patient's gait has been unsteady. CT scan of the abdomen and pelvis performed in the emergency room revealed a cirrhotic liver. No evidence of bowel obstruction, fatty infiltration of the liver with varices in the distal esophagus gastrohepatic ligament and splenorenal area. There are also mesenteric varices in the right lower quadrant. There is mild gallbladder distention without any gallstones or gallbladder wall thickening or pericholecystic fluid. There was subcutaneous infiltration with edema in the left thigh and hip. No abscess or emphysematous changes are seen in the left leg. The patient has not had any further vomiting since his hospitalization. PAST MEDICAL HISTORY: Notable for alcoholism, frequent falls at home, cirrhosis of the liver. PAST SURGICAL HISTORY: Notable for right knee surgery arthroscopically and left wrist fracture. FAMILY HISTORY: Unremarkable. SOCIAL HISTORY: The patient consumes alcohol on a regular basis on weekends with binge drinking. He denies illicit drug use. REVIEW OF SYSTEMS: Fourteen-point review of systems is notable for nausea, vomiting and frequent falls, gait disturbance and left leg paresthesia. PHYSICAL EXAMINATION: GENERAL: Well-developed male, lying in bed, in no acute distress. VITAL SIGNS: Reveal temperature of 98.2, blood pressure 128/73, heart rate of 84. HEENT: Reveals sclerae to be white. Conjunctivae pink. NECK: Supple. CHEST: Reveals lungs to be clear. HEART: Reveals regular rate and rhythm. ABDOMEN: Soft, nontender. No mass. EXTREMITIES: Show no edema. SPECIFICALLY: There is no edema or cellulitis around the left thigh or left buttock. LABORATORY DATA: Reveals white blood cell count 2.9, hemoglobin 10.5, platelet count of 39,000. Chemistries reveal AST of 350, ALT of 100, total bilirubin of 3. Serum alcohol level on admission to the hospital was 14. Hepatitis serology is negative. IMPRESSION: A 47-year-old male with alcoholism with nausea and vomiting for several days. CT scan of the abdomen and pelvis does show cirrhosis of the liver with multiple varices in the abdomen. There is no evidence of overt GI bleeding. He has had frequent falls at home with unsteady gait, most likely secondary to alcoholism. I suspect that his nausea and vomiting are secondary to either recent alcohol use or alcohol withdrawal. He is not tremulous. RECOMMENDATIONS: 1. Advance diet as tolerated. 2. We will recommend starting the patient on nadolol 20 mg daily for primary prevention of variceal bleeding. 3. Follow liver enzymes. 4. PPI, pantoprazole 40 mg once a day. Froylan Martínez MD
[2018-05-17 19:13] VITALS: BP 128/66; PULSE 78; TEMP 99
--- NOTE | 2018-05-17 22:21 | CP.PCM.DIS ---
<Alexandru Avilez - Last Filed: 05/17/18 23:09> Provider - Provider Date of Admission: 05/15/18 14:46 Attending physician: Kamron Wise MD Primary care physician: Froylan Farley MD Consults: Dr. Martínez - MICHAEL Time Spent in preparation of Discharge (in minutes): 40 Diagnosis - Discharge Diagnosis (1) Alcohol withdrawal Status: Acute Priority: High (2) Intra-abdominal varices Status: Acute Priority: Medium (3) Alcoholic cirrhosis of liver without ascites Status: Acute Priority: Medium (4) Elevated transaminase level Status: Acute Priority: Medium (5) Left leg weakness Status: Chronic Priority: Medium (6) Thrombocytopenia Status: Acute Priority: Medium Hospital Course - Lab Results Lab Results: Most Recent Lab Values WBC 3.9 10^3/ul (4.5-11.0) L D 05/17/18 09:50 RBC 2.90 10^6/uL (3.5-6.1) L 05/17/18 09:50 Hgb 10.5 g/dL (14.0-18.0) L 05/17/18 09:50 Hct 28.4 % (42.0-52.0) L 05/17/18 09:50 MCV 97.9 fl (80.0-105.0) 05/17/18 09:50 MCH 36.2 pg (25.0-35.0) H 05/17/18 09:50 MCHC 37.0 g/dl (31.0-37.0) 05/17/18 09:50 RDW 15.7 % (11.5-14.5) H 05/17/18 09:50 Plt Count 41 10^3/uL (120.0-450.0) L* 05/17/18 09:50 MPV 10.2 fl (7.0-11.0) 05/17/18 09:50 Gran % 69.1 % (50.0-68.0) H 05/17/18 09:50 Lymph % (Auto) 18.5 % (22.0-35.0) L 05/17/18 09:50 [place] % (Auto) 10.8 % (1.0-6.0) H 05/17/18 09:50 Eos % (Auto) 1.3 % (1.5-5.0) L 05/17/18 09:50 Baso % (Auto) 0.3 % (0.0-3.0) 05/17/18 09:50 Gran # 2.69 (1.4-6.5) 05/17/18 09:50 Lymph # (Auto) 0.7 (1.2-3.4) L 05/17/18 09:50 [place] # (Auto) 0.4 (0.1-0.6) 05/17/18 09:50 Eos # (Auto) 0.1 (0.0-0.7) 05/17/18 09:50 Baso # (Auto) 0.01 K/mm3 (0.0-2.0) 05/17/18 09:50 Differential Comment See pathology report 05/16/18 05:40 Sodium 138 mmol/L (132-148) 05/17/18 05:30 Potassium 3.6 mmol/L (3.6-5.0) 05/17/18 05:30 Chloride 103 mmol/L (98-107) 05/17/18 05:30 Carbon Dioxide 28 mmol/L (21-33) 05/17/18 05:30 Anion Gap 11 (10-20) 05/17/18 05:30 BUN 7 mg/dL (7-21) 05/17/18 05:30 Creatinine 0.6 mg/dl (0.8-1.5) L 05/17/18 05:30 Est GFR ( Amer) > 60 05/17/18 05:30 Est GFR (Non-Af Amer) > 60 05/17/18 05:30 Random Glucose 114 mg/dL (70-110) H 05/17/18 05:30 Hemoglobin A1c 4.5 % (4.2-6.5) 05/16/18 05:40 Calcium 8.0 mg/dL (8.4-10.5) L 05/17/18 05:30 Phosphorus 3.0 mg/dL (2.5-4.5) 05/17/18 05:30 Magnesium 1.5 mg/dL (1.7-2.2) L 05/17/18 05:30 Total Bilirubin 3.0 mg/dL (0.2-1.3) H 05/17/18 05:30 AST 350 U/L (17-59) H D 05/17/18 05:30 ALT 100 U/L (7-56) H 05/17/18 05:30 Alkaline Phosphatase 88 U/L (38-126) 05/17/18 05:30 Ammonia 60 umol/L (9-33) H 05/16/18 05:20 Total Protein 6.5 g/dL (5.8-8.3) 05/17/18 05:30 Albumin 2.9 g/dL (3.0-4.8) L 05/17/18 05:30 Globulin 3.6 gm/dL 05/17/18 05:30 Albumin/Globulin Ratio 0.8 (1.1-1.8) L 05/17/18 05:30 Triglycerides 70 mg/dL (35-160) 05/16/18 05:40 Cholesterol 131 mg/dL (130-200) 05/16/18 05:40 LDL Cholesterol Direct 79 mg/dL (0-129) 05/16/18 05:40 HDL Cholesterol 26 mg/dL (29-60) L 05/16/18 05:40 Vitamin B12 846 pg/mL (239-931) 05/16/18 05:40 Folate > 20.0 ng/mL 05/16/18 05:40 TSH 3rd Generation 3.26 mIU/mL (0.46-4.68) 05/16/18 05:40 Urine Color Yellow (YELLOW) 05/15/18 11:20 Urine Appearance Clear (CLEAR) 05/15/18 11:20 Urine pH 7.0 (4.7-8.0) 05/15/18 11:20 Ur Specific [place] <= 1.005 (1.005-1.035) 05/15/18 11:20 Urine Protein Negative mg/dL (<30 mg/dL) 05/15/18 11:20 Urine Glucose (UA) 100 mg/dL (NEGATIVE) H 05/15/18 11:20 Urine Ketones Negative mg/dL (NEGATIVE) 05/15/18 11:20 Urine Blood Negative (NEGATIVE) 05/15/18 11:20 Urine Nitrate Negative (NEGATIVE) 05/15/18 11:20 Urine Bilirubin Small (NEGATIVE) H 05/15/18 11:20 Urine Urobilinogen >=8.0 E.U./dL (<1 E.U./dL) 05/15/18 11:20 Ur Leukocyte Esterase Negative Ashley/uL (NEGATIVE) 05/15/18 11:20 Urine Opiates Screen Negative (NEGATIVE) 05/15/18 12:13 Urine Methadone Screen Negative (NEGATIVE) 05/15/18 12:13 Acetaminophen < 10.0 ug/ml (10.0-20.0) L 05/16/18 05:40 Ur Barbiturates Screen Negative (NEGATIVE) 05/15/18 12:13 Ur Phencyclidine Scrn Negative (NEGATIVE) 05/15/18 12:13 Ur Amphetamines Screen Negative (NEGATIVE) 05/15/18 12:13 U Benzodiazepines Scrn Negative (NEGATIVE) 05/15/18 12:13 U Oth Cocaine Metabols Negative (NEGATIVE) 05/15/18 12:13 U Cannabinoids Screen Negative (NEGATIVE) 05/15/18 12:13 Alcohol, Quantitative 14 mg/dL (0-10) H 05/15/18 08:50 RPR Nonreactive (NONREACTIVE) 05/16/18 05:40 Hepatitis A IgM Ab Negative (NEGATIVE) 05/16/18 05:40 Hep Bs Antigen Negative (NEGATIVE) 05/16/18 05:40 Hep B Core IgM Ab Negative (NEGATIVE) 05/16/18 05:40 Hepatitis C Antibody Negative (NEGATIVE) 05/16/18 05:40 - Hospital Course Hospital Course: Alexandru Avilez DO PGY1 - Internal Medicine Glaze Sprayer - Hospital Discharge Summary 47M w/ a PMH of EtOH abuse brought in by EMS on 05/15 after family stated he had been drinking for 5 days prior to admission began experiencing EtOH withdrawal symptoms as well as N/V x6 hours [employer]. On initial exam patient denied EtOH abuse however reported he was feeling tremulous and had increased complaints of gait unsteadiness, and LLE numbness/ tingling and pain which started in buttocks and radiated down to his foot. He reported LLE pain is chronic for him and it had worsened prior to admission. In the ED, patient was found to have hypokalemia, hypomagnesmia, thrombocytopenia, EtOH level of 14, and Transaminitis. He was also found to have a R flank hematoma 2/2 falls. Patient was started on banana bag, ativan, and CIWA protocol. CIWA scores remained stable and he was subsequently tapered off of ativan. LLE deficits were thought to be most likely 2/2 sciatica given distribution of symptoms and imaging below. PT Eval recommended patient for LONNY, and Gabapentin 100mg BID was started. Transaminitis improved through hospital course and found to be due to fatty cirrhotic liver 2/2 alcohol. Other etiologies such as acetminophen toxicity, and hepatitis were ruled out with serologic testing. Although imaging revealed cholecystis, patient had negative byrd's sign, no leukocytosis, and tolerated advancing diet well. CTAP did show multifocal varicies, GI consulted, and patient was started on Nadolol. He was instructed to follow up by GI for further evaluation as outpt. Patient's lab work through hospital course showed thrombocytopenia, and pancytopenia etiology most likely concluded to be 2/2 EtOH induced myelosupression. Relevant Imaging: -Head CT: no acute intracranial findings -Hip/Pelvis Xray: no evidence of fracture -Lumbar Spine CT: no acute vertebral compression fracture however findings of disc herniations between L3/4 L4/5 and L5/S1 were evident -EKG: HR 91, sinus rhythm with short ME, prolonged QT -GB U/S: questionable mural thickening of GB, distention and pericholecystic fluid are identified-may indicate cholecystitis. No biliary tree dilation or cholelithiasis -Abd/pelvis CT: moderate reactive changes are identified in left thigh...suggestive of posttraumatic changes. Fatty cirrhotic liver, multifocal varices are identified in abdomen, marked GB distention without radiodense cholelithiasis, mural thhickening or pericholecystic fluid collection -Extremity U/S: no sonographic evidence for DVT Patient was seen morning prior to discharge; No acute events overnight, nursing voiced no concerns w/ patient care at time of evaluation. CIWA score was 0, required no PRN ativan. He was counseled on his medical conditions, and alcohol cessation. Patient voiced same chronic complaints of LLE numbness/weakness. Patient was given the following instructions upon discharge: Please follow up with your primary care doctor, Dr. Farley, within 3-5 days of discharge from your subacute rehab. You have been diagnosed with esophageal varices during this admission. Information regarding this diagnosis has been provided in this paperwork. For medical management of this diagnosis you have been prescribed a medication called Nadolol. You will need to take this medication daily. It is also recommended that you have regular follow up with a rn faculty for this diagnosis. Dr. Froylan Martínez is a rn faculty that saw you during your admission. His contact information has been provided in this paperwork. Please follow up with him in his office within one week of discharge from your subacute rehab. Please avoid all medications that are known to be harmful to your liver and please stop drinking alcohol, as discussed during your admission. Please continue all currently active medications while at [facility]. Please take all medications as prescribed. If your symptoms return, please seek emergency medical care. ---- The patient was medically optimized for discharge to [facility] at this time. - Date & Time of H&P Date of H&P: 05/15/18 Time of H&P: 15:50 Discharge Exam - Head Exam Head Exam: ATRAUMATIC, NORMOCEPHALIC - Eye Exam Eye Exam: EOMI, PERRL, Scleral icterus - ENT Exam ENT Exam: Mucous Membranes Moist - Respiratory Exam Respiratory Exam: Clear to PA & Lateral, NORMAL BREATHING PATTERN, UNREMARKABLE. absent: Wheezes, Respiratory Distress, Stridor - Cardiovascular Exam Cardiovascular Exam: REGULAR RHYTHM, RRR, +S1, +S2. absent: Systolic Murmur - GI/Abdominal Exam GI & Abdominal Exam: Normal Bowel Sounds, Unremarkable. absent: Tenderness Additional comments: Byrd Sign negative - Extremities Exam Extremities exam: pedal pulses present Additional comments: Diminished sensation along LLE dermatomes - Back Exam Back exam: absent: CVA tenderness (L), CVA tenderness (R) Additional comments: Improving hematoma on R flank - Neurological Exam Neurological exam: Alert, CN II-XII Intact, Oriented x3 Additional comments: Gross strength 5/5 UE/LE BL Non tremulous - Psychiatric Exam Psychiatric exam: Normal Affect, Normal Mood - Skin Skin Exam: Dry, Intact, Normal Color, Warm Discharge Plan - Discharge Medications Prescriptions: Nadolol [Corgard] 20 mg PO DAILY #14 tab - Follow Up Plan Condition: FAIR Disposition: [facility] Instructions: Alcohol Abuse and Alcoholism (DC), Esophageal Varices (DC), Nadolol Additional Instructions: Please follow up with your primary care doctor, Dr. Farley, within 3-5 days of discharge from your subacute rehab. You have been diagnosed with esophageal varices during this admission. Information regarding this diagnosis has been provided in this paperwork. For medical management of this diagnosis you have been prescribed a medication called Nadolol. You will need to take this medication daily. It is also recommended that you have regular follow up with a rn faculty for this diagnosis. Dr. Froylan Martínez is a rn faculty that saw you during your admission. His contact information has been provided in this paperwork. Please follow up with him in his office within one week of discharge from your subacute rehab. Please avoid all medications that are known to be harmful to your liver and please stop drinking alcohol, as discussed during your admission. Please continue all currently active medications while at [facility]. Please take all medications as prescribed. If your symptoms return, please seek emergency medical care. Referrals: Froylan Farley MD [Primary Care Provider] - Froylan Martínez MD [Staff Provider] - <Kamron Wise - Last Filed: 05/18/18 07:51> Provider - Provider Date of Admission: 05/15/18 14:46 Attending physician: Kamron Wise MD Primary care physician: Froylan Farley MD Hospital Course - Lab Results Lab Results: Most Recent Lab Values WBC 3.9 10^3/ul (4.5-11.0) L D 05/17/18 09:50 RBC 2.90 10^6/uL (3.5-6.1) L 05/17/18 09:50 Hgb 10.5 g/dL (14.0-18.0) L 05/17/18 09:50 Hct 28.4 % (42.0-52.0) L 05/17/18 09:50 MCV 97.9 fl (80.0-105.0) 05/17/18 09:50 MCH 36.2 pg (25.0-35.0) H 05/17/18 09:50 MCHC 37.0 g/dl (31.0-37.0) 05/17/18 09:50 RDW 15.7 % (11.5-14.5) H 05/17/18 09:50 Plt Count 41 10^3/uL (120.0-450.0) L* 05/17/18 09:50 MPV 10.2 fl (7.0-11.0) 05/17/18 09:50 Gran % 69.1 % (50.0-68.0) H 05/17/18 09:50 Lymph % (Auto) 18.5 % (22.0-35.0) L 05/17/18 09:50 [place] % (Auto) 10.8 % (1.0-6.0) H 05/17/18 09:50 Eos % (Auto) 1.3 % (1.5-5.0) L 05/17/18 09:50 Baso % (Auto) 0.3 % (0.0-3.0) 05/17/18 09:50 Gran # 2.69 (1.4-6.5) 05/17/18 09:50 Lymph # (Auto) 0.7 (1.2-3.4) L 05/17/18 09:50 [place] # (Auto) 0.4 (0.1-0.6) 05/17/18 09:50 Eos # (Auto) 0.1 (0.0-0.7) 05/17/18 09:50 Baso # (Auto) 0.01 K/mm3 (0.0-2.0) 05/17/18 09:50 Differential Comment See pathology report 05/16/18 05:40 Sodium 138 mmol/L (132-148) 05/17/18 05:30 Potassium 3.6 mmol/L (3.6-5.0) 05/17/18 05:30 Chloride 103 mmol/L (98-107) 05/17/18 05:30 Carbon Dioxide 28 mmol/L (21-33) 05/17/18 05:30 Anion Gap 11 (10-20) 05/17/18 05:30 BUN 7 mg/dL (7-21) 05/17/18 05:30 Creatinine 0.6 mg/dl (0.8-1.5) L 05/17/18 05:30 Est GFR ( Amer) > 60 05/17/18 05:30 Est GFR (Non-Af Amer) > 60 05/17/18 05:30 Random Glucose 114 mg/dL (70-110) H 05/17/18 05:30 Hemoglobin A1c 4.5 % (4.2-6.5) 05/16/18 05:40 Calcium 8.0 mg/dL (8.4-10.5) L 05/17/18 05:30 Phosphorus 3.0 mg/dL (2.5-4.5) 05/17/18 05:30 Magnesium 1.5 mg/dL (1.7-2.2) L 05/17/18 05:30 Total Bilirubin 3.0 mg/dL (0.2-1.3) H 05/17/18 05:30 AST 350 U/L (17-59) H D 05/17/18 05:30 ALT 100 U/L (7-56) H 05/17/18 05:30 Alkaline Phosphatase 88 U/L (38-126) 05/17/18 05:30 Ammonia 60 umol/L (9-33) H 05/16/18 05:20 Total Protein 6.5 g/dL (5.8-8.3) 05/17/18 05:30 Albumin 2.9 g/dL (3.0-4.8) L 05/17/18 05:30 Globulin 3.6 gm/dL 05/17/18 05:30 Albumin/Globulin Ratio 0.8 (1.1-1.8) L 05/17/18 05:30 Triglycerides 70 mg/dL (35-160) 05/16/18 05:40 Cholesterol 131 mg/dL (130-200) 05/16/18 05:40 LDL Cholesterol Direct 79 mg/dL (0-129) 05/16/18 05:40 HDL Cholesterol 26 mg/dL (29-60) L 05/16/18 05:40 Vitamin B12 846 pg/mL (239-931) 05/16/18 05:40 Folate > 20.0 ng/mL 05/16/18 05:40 TSH 3rd Generation 3.26 mIU/mL (0.46-4.68) 05/16/18 05:40 Urine Color Yellow (YELLOW) 05/15/18 11:20 Urine Appearance Clear (CLEAR) 05/15/18 11:20 Urine pH 7.0 (4.7-8.0) 05/15/18 11:20 Ur Specific [place] <= 1.005 (1.005-1.035) 05/15/18 11:20 Urine Protein Negative mg/dL (<30 mg/dL) 05/15/18 11:20 Urine Glucose (UA) 100 mg/dL (NEGATIVE) H 05/15/18 11:20 Urine Ketones Negative mg/dL (NEGATIVE) 05/15/18 11:20 Urine Blood Negative (NEGATIVE) 05/15/18 11:20 Urine Nitrate Negative (NEGATIVE) 05/15/18 11:20 Urine Bilirubin Small (NEGATIVE) H 05/15/18 11:20 Urine Urobilinogen >=8.0 E.U./dL (<1 E.U./dL) 05/15/18 11:20 Ur Leukocyte Esterase Negative [place]/uL (NEGATIVE) 05/15/18 11:20 Urine Opiates Screen Negative (NEGATIVE) 05/15/18 12:13 Urine Methadone Screen Negative (NEGATIVE) 05/15/18 12:13 Acetaminophen < 10.0 ug/ml (10.0-20.0) L 05/16/18 05:40 Ur Barbiturates Screen Negative (NEGATIVE) 05/15/18 12:13 Ur Phencyclidine Scrn Negative (NEGATIVE) 05/15/18 12:13 Ur Amphetamines Screen Negative (NEGATIVE) 05/15/18 12:13 U Benzodiazepines Scrn Negative (NEGATIVE) 05/15/18 12:13 U Oth Cocaine Metabols Negative (NEGATIVE) 05/15/18 12:13 U Cannabinoids Screen Negative (NEGATIVE) 05/15/18 12:13 Alcohol, Quantitative 14 mg/dL (0-10) H 05/15/18 08:50 RPR Nonreactive (NONREACTIVE) 05/16/18 05:40 Hepatitis A IgM Ab Negative (NEGATIVE) 05/16/18 05:40 Hep Bs Antigen Negative (NEGATIVE) 05/16/18 05:40 Hep B Core IgM Ab Negative (NEGATIVE) 05/16/18 05:40 Hepatitis C Antibody Negative (NEGATIVE) 05/16/18 05:40 Attending/Attestation - Attestation I have personally seen and examined this patient.: Yes I have fully participated in the care of the patient.: Yes I have reviewed all pertinent clinical information, including history, physical exam and plan: Yes Notes (Text): 05/17/18 47 year old male with past medical history of alcohol abuse who presented with alcohol intoxication and left leg numbness. He was ativan rubina/prn for alcohol withdrawal symptoms. He was counselled on alcohol abstinence. He had thrombocytopenia and elevated LFTs likely secondary to chronic ETOH abuse. CT abd/pelvis showed fatty cirrhotic liver and multifocal varices in the abdomen. He was seen by GI who started protonix and nadolol and recommended outpatient EGD. CT also showed moderate L5-S1 disc bulge and moderative reactive change of left thigh (?posttraumatic changes). He was started on gabapentin and seen by PT who recommended LONNY. He had small bruising / hematoma on his low back / flank. CT abd/pelvis was negative for retroperitoneal hematoma. Patient is discharged to [facility]. Follow up with pmd. Counselled on alcohol cessation. Monitor LFTs/platelets as outpatient. D/c protonix or thrombocytopenia is persisent or worsening. Follow up with GI for elective EGD. Kamron Wise MD Hospitalist.
[2018-05-18] MEDS ORDERED: Pantoprazole 40 mg EC Tab PO SCH (06:00)
[2018-05-18] MEDS ORDERED: Multivitamin With Minerals Tab PO SCH (08:00)
== END 2018-05-18 01:20 | DRG 750 ==
LOC: ED 07:57 → ERH 14:46 → 2RNO 16:35
PROVIDERS: ADMIT Hospitalist; ATTEND Internal Medicine
DX: F10.239 Alcohol dependence with withdrawal, unspecified (principal); D61.818 Other pancytopenia; E87.6 Hypokalemia; K70.30 Alcoholic cirrhosis of liver without ascites; F10.229 Alcohol dependence with intoxication, unspecified; E83.42 Hypomagnesemia; I85.00 Esophageal varices without bleeding; I86.8 Varicose veins of other specified sites; K59.00 Constipation, unspecified; K82.8 Other specified diseases of gallbladder; M54.30 Sciatica, unspecified side; R29.6 Repeated falls; S30.1XXA Contusion of abdominal wall, initial encounter; Y90.0 Blood alcohol level of less than 20 mg/100 ml; Z80.0 Family history of malignant neoplasm of digestive organs; Z82.3 Family history of stroke

== ENCOUNTER 2018-07-20 19:09 | Emergency (ER) | payer MEDICAID ==
--- NOTE | 2018-07-20 19:44 | ED PDOC ---
Arrival/HPI - General Chief Complaint: Alcohol Ingestion Time Seen by Provider: 07/20/18 19:38 Historian: Patient EM Caveat: Intoxicated (inebriated) - History of Present Illness Narrative History of Present Illness (Text): 07/20/18 20:02 47 y/o M w/ h/o alcohol abuse presenting to the ED for acute alcohol intoxication. Patient states he drank 5 beers and was on his way to his cousin's house when he was found by EMS on the floor, unable to arise on his own. A more complete HPI and ROS was unable to be obtained due to the patient's clinical condition Time/Duration: Prior to Arrival Symptom Onset: Sudden Symptom Course: Intermittent Activities at Onset: Rest Context: Home, Street, Pedestrian Past Medical History - Provider Review Nursing Documentation Reviewed: Yes - Cardiac Hx Hypertension: Yes - Pulmonary Hx Respiratory Disorders: No - Neurological Hx Neurological Disorder: Yes (RIGHT LEG [id number]) - HEENT Hx HEENT Disorder: No - Renal Hx Renal Disorder: No - Endocrine/Metabolic Hx Endocrine Disorders: No - Hematological/Oncological Hx Blood Disorders: Yes (H/O THROMBOCYTOPENIA,TRANSAMINITIS 05-15-18) - Integumentary Hx Dermatological Disorder: Yes (BRUISED TO RIGHT LOWR BACK AND LEFT LEG AREA 05-15-18) - Musculoskeletal/Rheumatological Hx Musculoskeletal Disorders: Yes (RIGHT KNEE ARTHROSCOPY,L WRIST FX,DISC BULGE L3-L4) Hx Falls: Yes (RECENT ONE LAST Sunday05-10-18) Hx Unsteady Gait: Yes - Gastrointestinal Hx Gastrointestinal Disorders: No - Genitourinary/Gynecological Hx Genitourinary Disorders: No - Psychiatric Hx Substance Use: No - Surgical History Hx Orthopedic Surgery: Yes (L wrist) - Anesthesia Hx Anesthesia: Yes Hx Anesthesia Reactions: No Family/Social History - Physician Review Nursing Documentation Reviewed: Yes Family/Social History: No Known Family HX Smoking Status: Never Smoked Hx Alcohol Use: Yes Hx Substance Use: No Allergies/Home Meds Allergies/Adverse Reactions: Allergies No Known Allergies Allergy (Verified 06/28/18 10:48) Review of Systems - Physician Review All systems were reviewed & negative as marked: Yes - Review of Systems Systems not reviewed;Unavailable: Intoxicated (Inebriated) Physical Exam Vital Signs Reviewed: Yes Temperature: Afebrile Blood Pressure: Normal Pulse: Regular Respiratory Rate: Normal Appearance: Positive for: Well-Appearing, Non-Toxic, Comfortable Pain Distress: None Mental Status: Positive for: other (Patient able to respond to questions when asked, but needs redirection. No slurring of words) - Systems Exam Head: Present: Atraumatic, Normocephalic. No: Other (No obvious trauma to face) Pupils: Present: PERRL Extroacular Muscles: Present: EOMI Conjunctiva: Present: Normal Mouth: Present: Moist Mucous Membranes, Other (alcohol on breath) Neck: Present: Normal Range of Motion Respiratory/Chest: Present: Clear to Auscultation, Good Air Exchange. No: Respiratory Distress, Accessory Muscle Use Cardiovascular: Present: Regular Rate and Rhythm, Normal S1, S2. No: Murmurs Abdomen: No: Tenderness, Distention, Peritoneal Signs Back: Present: Normal Inspection Upper Extremity: Present: Normal Inspection. No: Cyanosis, Edema, Other (No obv ious trauma to extremity) Lower Extremity: Present: Normal Inspection. No: Edema, Other (No obvious trauma to extremity) Neurological: Present: GCS=15, CN II-XII Intact, Speech Normal Skin: Present: Warm, Dry, Normal Color. No: Rashes Psychiatric: Present: Normal Insight, Normal Concentration, Intoxicated (Patient able to respond to questions when asked, but needs redirection. No slurring of words) Medical Decision Making ED Course and Treatment: 07/20/18 20:02 Impression: 47 year old male presents for alcohol intoxication tonight. Plan: -- Alcohol Serum -- Glucose, POC -- Reassess and disposition Prior Visits: Notes and results from previous visits were reviewed. Progress Notes: 07/21/18 06:13 Patient awakened and noted to ambulate around unit unassisted without tremulousness or fasiculations. Patient is tolerating food without difficulty. He is stable for discharge. - Lab Interpretations I have reviewed the lab results: Yes Disposition/Present on Arrival - Present on Arrival Any Indicators Present on Arrival: No History of DVT/PE: No History of Uncontrolled Diabetes: No Urinary Catheter: No History Surgical Site Infection Following: None - Disposition Have Diagnosis and Disposition been Completed?: Yes Diagnosis: Alcohol abuse Disposition: HOME/ ROUTINE Disposition Time: 06:17 Patient Plan: Discharge Patient Problems: Current Active Problems Problem Status Onset Alcohol abuse Acute Condition: IMPROVED Discharge Instructions (ExitCare): Alcohol Abuse and Alcoholism (DC) Additional Instructions: All medical record entries made by the Scribe were at my direction and personally dictated by me. I have reviewed the chart and agree that the record accurately reflects my personal performance of the history, physical exam, medical decision making, and the department course for this patient. I have also personally directed, reviewed, and agree with the discharge instructions and disposition. Referrals: [facility] at [facility] [place] [Outside] - Follow up with primary Nava Lockwood MD [Medical Doctor] - Follow up with primary Forms: [employer] (Sinhala)
[2018-07-20 19:51] VITALS: BMI 25.8
[2018-07-20 20:21] VITALS: TEMP 98.3
[2018-07-21 06:18] VITALS: BP 120/69; PULSE 88; RESP 18; O2SAT 100
== END 2018-07-21 06:21 | disposition home or self-care (01) ==
LOC: ED 19:09
DX: F10.10 Alcohol abuse, uncomplicated (principal)